=== PATIENT | female | born 1985 | race Caucasian/White ===

== ENCOUNTER 2017-01-17 15:55 | Emergency (ER) | payer OTHER ==
[~2017-01-17] VITALS: Ht 167.6 cm; Wt 107.0 kg
[~2017-01-17 15:55] MED LIST: APAP500 PO; FLOMAX PO; FLUOXETINE; IBUPROFEN 200200 M1 PO; LABETALOL HCL100 MG PO; LASIX 20 MG TAB20 MG PO; LORTAB 5 MG/5001 TA1 PO; ORTHO TRI-CYCL1 EACH PO; PERCOCET 5-3251 EACH PO; PRENATAL PO; SERTRALINE HCL50 MG PO; WELLBUTRIN XL300 MG PO; ZOFRAN ODT4 MG PO
[2017-01-17] MEDS ORDERED: MIRALAX255 GM PO (17:42)
[2017-01-17 18:03] VITALS: BP 135/84
== END 2017-01-17 18:04 | disposition home or self-care (01) ==
LOC: ER 15:55
DX: K59.00 Constipation, unspecified (principal); E66.01 Morbid (severe) obesity due to excess calories; Z68.38 Body mass index [BMI] 38.0-38.9, adult

== ENCOUNTER → 2018-12-03 | Day surgery (SDC) | payer BC ==
[~2018-12-03] VITALS: Ht 170.2 cm; Wt 117.0 kg
[~2018-12-03] MED LIST changes: +MIRALAX255 GM PO
[2018-12-03 16:00] VITALS: BP 155/94
--- NOTE | 2018-12-04 09:59 | O ---
[facility] [place] [address] OPERATIVE REPORT Name: QUIN LUNSFORD Room #: REG [facility]#: [id number] Admission: 12/03/18 Attend Phys: Harsha Figueroa MD Discharge: Date of : 85 Report #: [id number] THIS REPORT FOR: //name// CC: Harsha Figueroa Lizzy Jeffries DATE OF SERVICE: 12/03/2018 SERVICE: Orthopedics. FACILITY: [facility]. SURGEON: Harsha Figueroa MD. CAFETERIA TEAM LEADER: Becca Rogers NP. INDICATION FOR CAFETERIA TEAM LEADER: Assistance with reduction and provisional fixation. PREOPERATIVE DIAGNOSES: 1. Left ankle fracture dislocation. 2. Left trimalleolar ankle fracture. POSTOPERATIVE DIAGNOSES: 1. Left ankle fracture dislocation. 2. Left trimalleolar ankle fracture. PROCEDURE: Open reduction internal fixation of left trimalleolar ankle fracture with fixation of medial and lateral malleoli. COMPLICATIONS: None. DRAINS: None. SPECIMENS: None. ANESTHESIA TYPE: General. FINDINGS: Synthes 6-hole 1/3 tubular plate of the fibula with interfragmentary compression screw and cannulated screws medially. HISTORY AND INDICATIONS: The patient is a 33-year-old female who fell on the ice this past weekend and sustained a left ankle fracture dislocation. She presented to the clinic where she underwent closed reduction and splinting and was instructed on ice and elevation and then, she was indicated for surgical treatment. The soft tissue envelope was amenable to fixation today, so we proceeded with surgical plan. Risks, benefits, alternatives and indications for [facility] [address] [place] [address] OPERATIVE REPORT Name: QUIN LUNSFORD Room #: REG [facility].#: [id number] Admission: 12/03/18 Attend Phys: Harsha Figueroa MD Discharge: Date of : 85 Report #: [id number] the surgery were discussed with her in detail. Risks include but not limited to pain, bleeding, infection, injury to nerves or blood vessels, malunion, nonunion, need for further surgery including hardware removal as well as complications related to anesthesia such as stroke, heart attack, pulmonary complications, thromboembolic disease and . Despite these risks, she wished to proceed. PROCEDURE IN DETAIL: After left lower extremity was correctly identified in the preoperative holding area as the operative extremity, the patient was taken to the operating room where general anesthesia was induced without complication with LMA. She was padded appropriately. Prophylactic antibiotics were administered at appropriate time. Tourniquet was applied to the left leg. Left lower extremity was prepped and draped in standard sterile fashion. Time-out procedure was performed. Standard lateral approach was made to the ankle. We assessed the reduction preoperatively before prepping and draping to confirm the anatomic reduction of the tibiotalar joint could be achieved with fixation laterally first. Dissection was taken down to the fibula. The fracture was exposed, debrided and then, a reduction maneuver was performed. Provisional fixation was achieved with the clamps and then, a 3.5-mm interfragmentary compression screw was placed across the fracture site providing good secure fixation. A neutralization plate was then selected with a 1/3 tubular plate, which was centered on the fibula, fixed proximally with cortical screw and then fixed distally with cancellous screws using fluoroscopy to confirm positioning and then completing the lateral fixation. They note that the joint had been cleaned out from the lateral side via exposure of the superolateral shoulder of the ankle joint, syndesmosis was stable. A curvilinear incision was then made over the medial aspect of the ankle. The saphenous vein was protected. Smaller branches were sacrificed in the exposure, the medial malleolus was exposed and the fracture was displaced. Hematoma was irrigated. The medial aspect of the ankle was irrigated and lavaged. There was some articular comminution at the superomedial corner, but otherwise, the joint looked healthy. The ankle was again lavaged and then, the fracture was held provisionally fixed. The angle approach require 2 percutaneous incisions for the provisional K wires, which were used as guide pins for the cannulated screws and then, two 40-mm 4.0 cannulated screws were placed in a typical fashion providing good compression across the fracture line, which could be visualized through the open incision. Multiple planes of x-ray were used throughout to confirm anatomic reduction and good positioning. The cross table lateral confirmed that the posterior malleolus did not require any surgical fixation and then, the wound was copiously irrigated. Final x-rays were taken. The tourniquet was let down. Hemostasis was achieved. The skin layers were closed with 2-0 Vicryl followed by skin karishma. A sterile dressing was applied followed by a well-padded short leg splint. [address] [address] OPERATIVE REPORT Name: QUIN LUNSFORD Room #: REG [facility]..#: [id number] Admission: 12/03/18 Attend Phys: Harsha Figueroa MD Discharge: Date of : 85 Report #: [id number] The patient was awakened from anesthesia and taken to recovery room in stable condition. There were no complications. All counts were reported as correct. <ELECTRONICALLY SIGNED> By: Harsha Figueroa MD 12/04/18 [id number] Harsha Figueroa MD /nt
== END | disposition home or self-care (01) ==
LOC: OR 12:14
DX: S82.852A Displaced trimalleolar fracture of left lower leg, initial encounter for closed fracture (principal); E66.01 Morbid (severe) obesity due to excess calories; Z88.8 Allergy status to other drugs, medicaments and biological substances; Z79.899 Other long term (current) drug therapy; Z87.442 Personal history of urinary calculi; Z68.41 Body mass index [BMI] 40.0-44.9, adult; W19.XXXA Unspecified fall, initial encounter; Y93.89 Activity, other specified; Y92.89 Other specified places as the place of occurrence of the external cause; Y99.8 Other external cause status
CPT/HCPCS: 50010; 50101; 50343; 50386; 51122; 51131; 51412; 56528; 56667; 57091; 57181; 62110; 62900; 64042; 70005

== ENCOUNTER 2021-08-28 11:10 | Emergency (ER) | payer BC ==
[~2021-08-28] VITALS: Ht 170.2 cm; Wt 125.7 kg
[2021-08-28 11:11] VITALS: BP 186/106
[2021-08-28] MEDS ORDERED: DOXYCYCLINE 10100 MG PO (11:24)
== END 2021-08-28 11:26 | disposition home or self-care (01) ==
LOC: ER 11:10
DX: T63.301A Toxic effect of unspecified spider venom, accidental (unintentional), initial encounter (principal); L25.8 Unspecified contact dermatitis due to other agents; E66.01 Morbid (severe) obesity due to excess calories; Z68.41 Body mass index [BMI] 40.0-44.9, adult; Z87.442 Personal history of urinary calculi; Z79.891 Long term (current) use of opiate analgesic; Z79.1 Long term (current) use of non-steroidal anti-inflammatories (NSAID); Z79.899 Other long term (current) drug therapy; Z91.09 Other allergy status, other than to drugs and biological substances; Y92.89 Other specified places as the place of occurrence of the external cause